=== PATIENT | female | born 1950 | race Caucasian/White ===

== ENCOUNTER 2021-03-07 09:22 | Outpatient (CLI) | payer MEDICARE | END 2021-03-07 09:23 | disposition home or self-care (01) | LOC: CSHMAMMO 09:22 | PROVIDERS: ATTEND Family Medicine | DX: Z12.31 Encounter for screening mammogram for malignant neoplasm of breast (principal); Z13.820 Encounter for screening for osteoporosis; Z78.0 Asymptomatic menopausal state | CPT/HCPCS: 77063; 77067; 77080 ==

== ENCOUNTER 2022-11-17 09:23 | Outpatient (CLI) | payer OTHER | END 2022-11-17 09:24 | disposition home or self-care (01) | LOC: CSHMAMMO 09:23 | PROVIDERS: ATTEND Family Medicine | DX: Z12.31 Encounter for screening mammogram for malignant neoplasm of breast (principal); Z13.820 Encounter for screening for osteoporosis; M85.851 Other specified disorders of bone density and structure, right thigh; M85.852 Other specified disorders of bone density and structure, left thigh; Z78.0 Asymptomatic menopausal state | CPT/HCPCS: 77063; 77067; 77080 ==

== ENCOUNTER 2023-12-15 10:59 | Outpatient (CLI) | payer OTHER | END 2023-12-15 11:00 | disposition home or self-care (01) | LOC: CSHMAMMO 10:59 | PROVIDERS: ATTEND Family Medicine | DX: Z12.31 Encounter for screening mammogram for malignant neoplasm of breast (principal) | CPT/HCPCS: 77063; 77067 ==

== ENCOUNTER 2025-04-10 07:46 | Outpatient (CLI) | payer OTHER ==
[2025-04-10] MEDS ORDERED: Iopamidol 370 76% 100 ML VIAL ONE (10:36)
[2025-04-10 11:05] LABS: Estimated GFR - POC 90.0
== END 2025-04-10 07:47 | disposition home or self-care (01) ==
LOC: CSHCT 07:46
PROVIDERS: ATTEND Internal Medicine Cardiovascular Disease
DX: I77.89 Other specified disorders of arteries and arterioles (principal); I77.810 Thoracic aortic ectasia; I51.7 Cardiomegaly; N13.30 Unspecified hydronephrosis; N20.0 Calculus of kidney; E04.2 Nontoxic multinodular goiter
CPT/HCPCS: 36415; 71275; 82565; Q9967

== ENCOUNTER 2025-05-24 13:45 | Outpatient (CLI) | payer OTHER | END 2025-05-24 13:46 | disposition home or self-care (01) | LOC: CSHULT 13:45 | PROVIDERS: ATTEND Family Medicine | DX: E04.1 Nontoxic single thyroid nodule (principal) | CPT/HCPCS: 76536 ==